=== PATIENT | male | born 1965 | race Hispanic/Latino ===

== ENCOUNTER 2018-09-14 00:01 | Emergency (ER) | payer OTHER ==
[2018-09-14] MEDS ORDERED: Lidocaine Hydrochloride 5 ML INJ ONE (00:28)
[2018-09-14] MEDS ORDERED: Lidocaine 1% Inj (20ml) INFIL STA (00:29)
[2018-09-14] MEDS ORDERED: Bacitracin 500 Units/gm Oint Foilpak UD ONE (00:31)
[2018-09-14 01:08] LABS: BARBITURATES, UR NEGATIVE (NEGATIVE); BENZODIAZEPINES, UR NEGATIVE (NEGATIVE); OPIATES, UR NEGATIVE (NEGATIVE); PHENCYCLIDINE, UR NEGATIVE (NEGATIVE)
--- NOTE | 2018-09-14 01:55 | C.PDOC ---
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 Patient states his job is requesting a urine drug screen and ETOH level. Denies weakness or other injuries. Tetanus is up to date. Time Seen by Provider: 09/14/18 00:20 Chief Complaint (Nursing): Abnormal Skin Integrity History Per: Patient History/Exam Limitations: no limitations Onset/Duration Of Symptoms: Hrs Current Symptoms Are (Timing): Still Present Recent travel outside of the [place]: No Past Medical History Reviewed: Historical Data, Nursing Documentation, Vital Signs Vital Signs: Last Vital Signs Temp 98.2 F 09/14/18 00:11 Pulse 86 09/14/18 00:11 Resp 20 09/14/18 00:11 BP 149/91 H 09/14/18 00:11 Pulse Ox 98 09/14/18 00:11 - Medical History PMH: No Chronic Diseases Family History: States: Unknown Family Hx - Social History Hx Alcohol Use: Yes Hx Substance Use: No - Immunization History Hx Tetanus Toxoid Vaccination: Yes (4 yrs ago) Hx Influenza Vaccination: No Hx Pneumococcal Vaccination: No Review Of Systems Musculoskeletal: Positive for: Hand Pain Skin: Positive for: Other (Laceration) Neurological: Positive for: Numbness. Negative for: Weakness Physical Exam - Physical Exam Appears: Well, Non-toxic, No Acute Distress Skin: Warm, Dry Head: Atraumatic, Normacephalic Eye(s): bilateral: Normal Inspection Extremity: Capillary Refill (<2 seconds), Other (5cm laceration at the base of the left index finger including the webbed space between 2nd and 3rd digits. Numbness to medial aspect of 2nd digit.) Pulses: Left Radial: Normal, Right Radial: Normal Neurological/Psych: Oriented x3, Normal Speech ED Course And Treatment O2 Sat by Pulse Oximetry: 98 (Room air) Pulse Ox Interpretation: Normal Progress Note: Percocet and Keflex po administered. Patient tolerated laceration repair without any difficulty, he is resting comfortably in the ER in no acute distress, vitals are stable, will discharge home with proper wound care instructions and advised to follow up for suture removal. Laceration - Laceration Repair Left index finger Wound Length (In cm): 5 Description Of Wound: Linear Wound Cleansed With: Betadine, Sterile Saline Anesthesia: Lidocaine 1% Wound Examination: Irrigated With Saline, No FB With Wound Exploration, No Tendon Injury With Wound Exploration Wound Closure: Suture Suture Technique And Material Used: Interrupted (10), Mattress (Three vertical), Nylon (4-0) Wound Complexity: Intermediate Disposition - Disposition Referrals: Triston Mcclain MD [Staff Provider] - Disposition: HOME/ ROUTINE Disposition Time: 01:52 Condition: IMPROVED Additional Instructions: Follow up with hand specialist within 1-2 days. Return to ED if feel worse. Suture removal in 2 days. If you are unable to see hand specialist, please return to ED for wound check in 2 days. Prescriptions: Bacitracin OINT 1 applic TP TID #45 g Cephalexin [Keflex] 500 mg PO Q6 #20 cap traMADol [Ultram] 50 mg PO Q6 #20 tab Instructions: Wound Care (DC), Common Finger Injuries Forms: [facility] ([facility]ana), Work Excuse - Clinical Impression Clinical Impression: Hand laceration - PA / [employer] / Resident Statement MD/DO has reviewed & agrees with the documentation as recorded. - Scribe Statement The provider has reviewed the documentation as recorded by the Scribe Douglas Arce All medical record entries made by the Dennisibxi were at my direction and personally dictated by me. I have reviewed the chart and agree that the record accurately reflects my personal performance of the history, physical exam, medical decision making, and the department course for this patient. I have also personally directed, reviewed, and agree with the discharge instructions and disposition.
[2018-09-14 01:56] VITALS: BP 145/81; PULSE 72; RESP 14; TEMP 97.9
[2018-09-14 01:57] VITALS: O2SAT 98
[2018-09-14] MEDS ORDERED: Oxycodone/Acetaminophen 5/325 mg Tab PO STA (01:57)
[2018-09-14] MEDS ORDERED: Oxycodone/Acetaminophen 5/325 mg Tab ONE (02:05)
== END 2018-09-14 02:10 | disposition home or self-care (01) ==
LOC: C.ER 00:01
DX: S61.211A Laceration without foreign body of left index finger without damage to nail, initial encounter (principal); W27.8XXA Contact with other nonpowered hand tool, initial encounter; Y92.89 Other specified places as the place of occurrence of the external cause; Y99.0 Civilian activity done for income or pay